=== PATIENT | female | born 1955 | race Caucasian/White ===

== ENCOUNTER 2016-11-17 16:26 | Emergency (ER) | payer OTHER ==
[~2016-11-17] VITALS: Ht 170.2 cm; Wt 108.7 kg
[~2016-11-17 16:26] MED LIST: CIPR500T4 PO; KETO10 PO; LORTA5 PO; METR-1 PO; PHEN1TAB49 PO; PROM1SUP12 PR; PROM25SU8 PO; ZOFR4TAB3 SL
[2016-11-17 16:31] VITALS: BP 200/83; PULSE 92; RESP 16; TEMP 98; O2SAT 98
[2016-11-17] MEDS ORDERED: METO50TA PO (16:43)
[2016-11-17] MEDS ORDERED: BUPR100T4 PO (16:43)
[2016-11-17] MEDS ORDERED: AMLO10TA2 PO (16:43)
--- NOTE | 2016-11-17 17:05 | PD ---
HPI Chief Complaint: Injury Time Seen by Provider: 16:47 Travel History International Travel<30 days: No Contact w/Intl Traveler<30days: No Traveled to known affect area: No History of Present Illness HPI 61-year-old female presents to the emergency room for evaluation of right knee pain, bruising, and swelling after injuring it earlier today. Patient has history of meniscus injury in her right knee for which she is scheduled to have surgery. States it locked up today while walking and she fell forward landing on bilateral knees. She has not been able to walk on it since. Patient applied ice but has not taken anything for pain. Denies lower extremity paresthesias. Denies any other injuries. She has an appointment with her orthopedist in 1 week. [facility] Past Medical History Arthritis: Yes Blood Disorders: No Cardiovascular Problems: Yes (PALPITATIONS) Diabetes: No Diminished Hearing: No Diverticulitis: Yes Endocrine: No GERD: Yes Genitourinary: No Immune Disorder: No Psychiatric: No Reproductive: No Respiratory: No Immunizations Current: No Migraines: Yes ?: Not Past Surgical History Appendectomy: Yes Cholecystectomy: Yes Hysterectomy: Yes Oral Surgery: Yes (TONSILS REMOVED) Tonsillectomy: Yes Social History Alcohol Use: No Tobacco Use: No Substance Use: No Allergies-Medications (Allergen,Severity, Reaction): Coded Allergies: codeine (Unverified Allergy, Mild, VOMITING, 11/17/16) morphine (Unverified Adverse Reaction, Mild, VOMITING, 11/17/16) Uncoded Allergies: WELCHOL (Allergy, Severe, 04/08/07) Reported Meds & Prescriptions Reported Meds & Active Scripts Active Reported Metoprolol Tartrate 50 Mg Tab 50 Mg PO DAILY Bupropion HCl 100 Mg Tab 300 Mg PO DAILY Amlodipine (Amlodipine Besylate) 10 Mg Tab 10 Mg PO DAILY Review of Systems Except as stated in HPI: all other systems reviewed are Neg Physical Exam Narrative GENERAL: Well-nourished, obese female in no acute distress. Afebrile. SKIN: Focused skin assessment warm/dry. Moderate ecchymosis over the right knee. HEAD: Normocephalic. EYES: No scleral icterus. No injection or drainage. NECK: Supple, trachea midline. No JVD or lymphadenopathy. CARDIOVASCULAR: Regular rate and rhythm without murmurs, gallops, or rubs. RESPIRATORY: Breath sounds equal bilaterally. No accessory muscle use. MUSCULOSKELETAL: No cyanosis. No significant edema noted. No obvious effusion. Extreme tenderness to palpation right patella. 2+ dorsalis pedis pulse on the right. Limited range of motion secondary to pain. Data Data Last Documented VS Vital Signs Date Time Temp Pulse Resp B/P (MAP) Pulse Ox O2 Delivery O2 Flow Rate FiO2 11/17/16 16:31 98.0 92 16 200/83 (122) 98 Orders Orders Knee, Complete (4vws) (11/17/16 ) [facility] Medical Decision Making Medical Screen Exam Complete: Yes Emergency Medical Condition: Yes Medical Record Reviewed: Yes Differential Diagnosis Fracture, contusion, sprain, strain, internal derangement Narrative Course 61-year-old female presents to the emergency room for evaluation of right knee pain, bruising, and swelling after injuring it earlier today. Patient states her knee locked and she fell forward landing directly on the knee. She has history of meniscus injury and is scheduled to see her orthopedist in one week for surgery. Physical exam reveals moderate ecchymosis in the right knee without significant edema or obvious effusion. Right lower extremity is neurovascularly intact with 2+ dorsalis pedis pulse. Tenderness to palpation especially over the patella. X-ray shows no acute bony abnormality. Patient discharged with Ronni wrap and told to follow-up with her orthopedist as scheduled or return to the emergency room for worsening symptoms. She understands and agrees to plan. Diagnosis Primary Impression: Contusion of right knee Qualified Codes: S80.01XA - Contusion of right knee, initial encounter Referrals: Orthopaedic Surgeon Primary Care Physician Additional Instructions: Rest and drink plenty of fluids. Use Ronni wrap as needed for pain. Take ibuprofen with food as directed, as needed for pain. Apply ice to the affected area for 20 minutes at a time, as needed for pain and swelling. Follow-up with a primary care physician. Return to the emergency room for worsening symptoms. Disposition: DISCHARGE HOME Condition: Stable Isabell Morris Nov 17, 2016 17:05
--- NOTE | 2016-11-17 17:34 | RADRPT ---
EXAM DATE/TIME: 11/17/2016 17:06 [facility] COMPARISON: No previous studies available for comparison. INDICATIONS : Trauma, fall. MEDICAL HISTORY : None. SURGICAL HISTORY : None. ENCOUNTER: Initial ACUITY: 1 day PAIN SCORE: 5/10 LOCATION: Right knee. FINDINGS: Four view examination of the right knee demonstrates no evidence of fracture or dislocation. Bony mi neralization is normal. Mild osteoarthritis. The suprapatellar soft tissues have a normal configurat ion. CONCLUSION: Osteoarthritis without fracture.. Bryant Townsend MD on November 17, 2016 at 17:32 Board Certified Radiologist. This report was verified electronically.
== END 2016-11-17 17:51 | disposition home or self-care (01) ==
LOC: PHEFT 16:26
DX: S80.01XA Contusion of right knee, initial encounter (principal); W19.XXXA Unspecified fall, initial encounter; Y93.01 Activity, walking, marching and hiking
CPT/HCPCS: 73564; 99283